=== PATIENT | female | born 1990 | race Caucasian/White ===

== ENCOUNTER 2018-11-10 00:23 | Emergency (ER) | payer OTHER ==
[2018-11-10 01:35] LABS: Amphetamine Screen,Urine Not Detected (NotDetected); Barbiturate Screen,Urine Not Detected (NotDetected); Benzodiazepines Screen,Urine Not Detected (NotDetected); Cocaine Screen,Urine Not Detected (NotDetected); Methadone Screen, Urine Not Detected (NotDetected); Opiate Screen,Urine Not Detected (NotDetected); Oxycodone Screen, Urine Not Detected (NotDetected); Phencyclidine Screen,Urine Not Detected (NotDetected); Tricyclic Antidepressant,Urine Not Detected (NotDetected); Urn Cannabinoid Scrn Detected (NotDetected)
--- NOTE | 2018-11-10 03:45 | ED ---
Psych HPI - General Chief Complaint: Psychiatric Symptoms Stated Complaint: Mental Health Time Seen by Provider: 11/10/18 01:37 Source: patient, family, police Mode of arrival: ambulatory - History of Present Illness Initial Comments: This patient is 27-year-old woman who is brought to have psychiatric evaluation. The patient's parents had filed a petition because they were concerned about her mental health. [place] and stated that she want to be alone. The patient's parents were concerned that she may have been suicidal. The patient states that she is not having thoughts of harming herself. She states that she needed to do some thinking and wanted to be alone for a while. She denies history of previous psychiatric illness or any previous suicidal ideation. MD Complaint: other -: hour(s) History of same: No - Related Data Home Medications Medication Instructions Recorded Confirmed Pnv,Calcium 72/Iron/Folic Acid 1 each PO DAILY 03/02/14 08/30/14 [ Vitamin with Low Iron] Previous Rx's Medication Instructions Recorded Acetaminophen-Codeine 300-30mg 2 each PO Q4HR PRN #30 tab 09/01/14 [Tylenol w/codeine #3] Ibuprofen [Motrin] 600 mg PO Q6HR PRN #30 tab 09/01/14 Allergies Allergy/AdvReac Type Severity Reaction Status Date / Time amoxicillin [Amoxicillin] Allergy Rash/Hives Verified 08/31/14 04:05 ciprofloxacin [From Cipro] Allergy Rash/Hives Verified 08/31/14 04:05 ciprofloxacin HCl Allergy Rash/Hives Verified 08/31/14 04:05 [From Cipro] Review of Systems ROS Statement: Those systems with pertinent positive or pertinent negative responses have been documented in the HPI. ROS Other: All systems not noted in ROS Statement are negative. Respiratory: Denies: cough, dyspnea Cardiovascular: Denies: chest pain, palpitations Gastrointestinal: Denies: abdominal pain, nausea, vomiting Genitourinary: Reports: abnormal menses (States she has not had a normal menstrual period since August, believes she may be ). Denies: dysuria, hematuria Musculoskeletal: Denies: back pain Skin: Denies: rash Neurological: Denies: headache Psychiatric: Denies: auditory hallucinations, visual hallucinations, homicidal thoughts, suicidal thoughts Past Medical History Past Medical History: Asthma Additional Past Medical History / Comment(s): OB history: This is her first . She has had care with me since 10 weeks. O neg, abs neg, Rub Imm, RPR NR, Hep B neg, HIV NR. normal anatomy US and declined quad. Normal 1hr GTT. History of Any Multi-Drug Resistant Organisms: None Reported Past Surgical History: Cholecystectomy Past Anesthesia/Blood Transfusion Reactions: No Reported Reaction Past Psychological History: Anxiety, Depression Smoking Status: Former smoker Past Alcohol Use History: None Reported Past Drug Use History: None Reported - Past Family History Mother Family Medical History: Hypertension General Exam Limitations: no limitations General appearance: alert, in no apparent distress Head exam: Present: atraumatic, normocephalic Eye exam: Present: normal appearance. Absent: scleral icterus, conjunctival injection Respiratory exam: Present: normal lung sounds bilaterally. Absent: respiratory distress, wheezes, rales, rhonchi, stridor Cardiovascular Exam: Present: regular rate, normal rhythm, normal heart sounds. Absent: systolic murmur, diastolic murmur, rubs, gallop GI/Abdominal exam: Present: soft. Absent: distended, tenderness, guarding, rebound, rigid, mass Neurological exam: Present: alert, oriented X3 Psychiatric exam: Absent: agitated, flat affect, manic, homicidal ideation, suicidal ideation Skin exam: Present: warm, dry, intact, normal color. Absent: rash Course Vital Signs 11/10/18 00:28 Temperature 97.9 F Pulse Rate 94 Respiratory 18 Rate Blood Pressure 113/78 O2 Sat by Pulse 99 Oximetry Medical Decision Making - Lab Data Result diagrams: 11/10/18 03:29 11/10/18 03:29 Lab Results 11/10/18 11/10/18 11/10/18 Range/Units 01:11 01:11 03:29 WBC (3.8-10.6) k/uL RBC (3.80-5.40) m/uL Hgb (11.4-16.0) gm/dL Hct (34.0-46.0) % MCV (80.0-100.0) fL MCH (25.0-35.0) pg MCHC (31.0-37.0) g/dL RDW (11.5-15.5) % Plt Count (150-450) k/uL Neutrophils % % Lymphocytes % % Monocytes % % Eosinophils % % Basophils % % Neutrophils # (1.3-7.7) k/uL Lymphocytes # (1.0-4.8) k/uL Monocytes # (0-1.0) k/uL Eosinophils # (0-0.7) k/uL Basophils # (0-0.2) k/uL Sodium 138 (137-145) mmol/L Potassium 3.5 (3.5-5.1) mmol/L Chloride 107 (98-107) mmol/L Carbon Dioxide 22 (22-30) mmol/L Anion Gap 9 mmol/L BUN 7 (7-17) mg/dL Creatinine 0.53 (0.52-1.04) mg/dL Est GFR (CKD-EPI)AfAm >90 (>60 ml/min/1.73 sqM) Est GFR (CKD-EPI)NonAf >90 (>60 ml/min/1.73 sqM) Glucose 93 (74-99) mg/dL Calcium 9.3 (8.4-10.2) mg/dL Urine HCG, Qual Detected (Not Detectd) Urine Opiates Screen Not Detected (NotDetected) Ur Oxycodone Screen Not Detected (NotDetected) Urine Methadone Screen Not Detected (NotDetected) Ur Propoxyphene Screen Not Detected (NotDetected) Acetaminophen <10.0 ug/mL Ur Barbiturates Screen Not Detected (NotDetected) U Tricyclic Antidepress Not Detected (NotDetected) Ur Phencyclidine Scrn Not Detected (NotDetected) Ur Amphetamines Screen Not Detected (NotDetected) U Methamphetamines Scrn Not Detected (NotDetected) U Benzodiazepines Scrn Not Detected (NotDetected) Urine Cocaine Screen Not Detected (NotDetected) U Marijuana (THC) Screen Detected H (NotDetected) 11/10/18 Range/Units 03:29 WBC 13.2 H (3.8-10.6) k/uL RBC 4.05 (3.80-5.40) m/uL Hgb 12.2 (11.4-16.0) gm/dL Hct 36.6 (34.0-46.0) % MCV 90.3 (80.0-100.0) fL MCH 30.1 (25.0-35.0) pg MCHC 33.4 (31.0-37.0) g/dL RDW 12.4 (11.5-15.5) % Plt Count 269 (150-450) k/uL Neutrophils % 77 % Lymphocytes % 17 % Monocytes % 4 % Eosinophils % 1 % Basophils % 0 % Neutrophils # 10.1 H (1.3-7.7) k/uL Lymphocytes # 2.2 (1.0-4.8) k/uL Monocytes # 0.5 (0-1.0) k/uL Eosinophils # 0.2 (0-0.7) k/uL Basophils # 0.0 (0-0.2) k/uL Sodium (137-145) mmol/L Potassium (3.5-5.1) mmol/L Chloride (98-107) mmol/L Carbon Dioxide (22-30) mmol/L Anion Gap mmol/L BUN (7-17) mg/dL Creatinine (0.52-1.04) mg/dL Est GFR (CKD-EPI)AfAm (>60 ml/min/1.73 sqM) Est GFR (CKD-EPI)NonAf (>60 ml/min/1.73 sqM) Glucose (74-99) mg/dL Calcium (8.4-10.2) mg/dL Urine HCG, Qual (Not Detectd) Urine Opiates Screen (NotDetected) Ur Oxycodone Screen (NotDetected) Urine Methadone Screen (NotDetected) Ur Propoxyphene Screen (NotDetected) Acetaminophen ug/mL Ur Barbiturates Screen (NotDetected) U Tricyclic Antidepress (NotDetected) Ur Phencyclidine Scrn (NotDetected) Ur Amphetamines Screen (NotDetected) U Methamphetamines Scrn (NotDetected) U Benzodiazepines Scrn (NotDetected) Urine Cocaine Screen (NotDetected) U Marijuana (THC) Screen (NotDetected) Disposition Clinical Impression: Mood disorder Disposition: HOME SELF-CARE Condition: Good Instructions (If sedation given, give patient instructions): Mood Disorders (ED) Is patient prescribed a controlled substance at d/c from ED?: No Referrals: None,Stated [Primary Care Provider] - 1-2 days
[2018-11-10 03:46] LABS: Basophils % (A) 0 %; Eosinophils # (A) 0.2 k/uL (0-0.7); Eosinophils % (A) 1 %; HCT 36.6 % (34.0-46.0); HGB 12.2 gm/dL (11.4-16.0); Lymphocytes # (A) 2.2 k/uL (1.0-4.8); Lymphocytes % (A) 17 %; MCH 30.1 pg (25.0-35.0); MCHC 33.4 g/dL (31.0-37.0); MCV 90.3 fL (80.0-100.0); Mean Platelet Volume 7.2; Monocytes # (A) 0.5 k/uL (0-1.0); Monocytes % (A) 4 %; Neutrophils # (A) 10.1 k/uL (1.3-7.7); Neutrophils % (A) 77 %; Platelet Count 269 k/uL (150-450); RBC 4.05 m/uL (3.80-5.40); RDW 12.4 % (11.5-15.5); WBC 13.2 k/uL (3.8-10.6)
[2018-11-10 03:55] LABS: Acetaminophen <10.0 ug/mL; African American GFR (CKD) >90 (>60 ml/min/1.73 sqM); Anion Gap 9 mmol/L; Blood Urea Nitrogen 7 mg/dL (7-17); Calcium 9.3 mg/dL (8.4-10.2); Carbon Dioxide 22 mmol/L (22-30); Chloride 107 mmol/L (98-107); Glucose 93 mg/dL (74-99); Potassium 3.5 mmol/L (3.5-5.1); Sodium 138 mmol/L (137-145)
[2018-11-10 06:56] VITALS: BP 116/78; PULSE 89; RESP 16; TEMP 98.2
== END 2018-11-10 06:12 | disposition home or self-care (01) ==
LOC: EC 00:23
DX: F39 Unspecified mood [affective] disorder (principal); Z90.49 Acquired absence of other specified parts of digestive tract; Z87.891 Personal history of nicotine dependence; Z88.0 Allergy status to penicillin; Z88.1 Allergy status to other antibiotic agents
CPT/HCPCS: 36415; 80048; 80306; 80329; 81025; 82075; 85025; 99284

== ENCOUNTER 2019-06-18 14:49 | Inpatient (IN) | payer OTHER ==
[2019-06-18] MEDS ORDERED: LIDOCAINE 0.5% (PF) 5 MG/ML (50 ML SDV) SQ PRN (15:10)
[2019-06-18] MEDS ORDERED: TERBUTALINE 1 MG/ML VIAL SQ PRN (15:10)
[2019-06-18] MEDS ORDERED: OXYTOCIN 10 UNIT/ML 1 ML VIAL IM PRN (15:10)
[2019-06-18] MEDS ORDERED: CARBOPROST TROMETHAMINE 250 MCG/ML 1 ML AMP IM PRN (15:10)
[2019-06-18] MEDS ORDERED: METHYLERGONOVINE 0.2 MG/ML 1 ML AMP IM PRN (15:10)
[2019-06-18] MEDS ORDERED: OXYTOCIN 30 UNITS/500 ML NS 30 UNIT in SALINE 1 500ML.BAG IV SCH (15:15)
[2019-06-18 16:00] LABS: Basophils # (A) 0.1 k/uL (0-0.2); Basophils % (A) 1 %; Eosinophils # (A) 0.1 k/uL (0-0.7); Eosinophils % (A) 1 %; HCT 35.8 % (34.0-46.0); Lymphocytes # (A) 1.5 k/uL (1.0-4.8); Lymphocytes % (A) 14 %; MCH 29.8 pg (25.0-35.0); MCHC 33.4 g/dL (31.0-37.0); MCV 89.2 fL (80.0-100.0); Mean Platelet Volume 8.7; Monocytes # (A) 0.8 k/uL (0-1.0); Monocytes % (A) 7 %; Neutrophils # (A) 8.2 k/uL (1.3-7.7); Neutrophils % (A) 76 %; Platelet Count 217 k/uL (150-450); RBC 4.02 m/uL (3.80-5.40); RDW 12.9 % (11.5-15.5); WBC 10.8 k/uL (3.8-10.6)
[2019-06-18] MEDS: LACTATED RINGERS 1,000 ML IV SCH ×2 (16:11→18:34)
--- NOTE | 2019-06-18 17:34 | P.HPOB ---
History of Present Illness H&P Date: 06/18/19 Chief Complaint: Spontaneous rupture of membranes This is a 28-year-old female 2 para 1 with an estimated date of confinement of 07/10/2019, estimated gestational age of 37-0/7 weeks who presents to labor and delivery with complaints of spontaneous rupture membranes at approximately 12:00 today. She denies feeling any regular contractions. She admits to good movement. Her care has been with Dr. Mena and has been uncomplicated per patient. labs: GC/chlamydia/gonorrhea-negative Hepatitis B surface antigen-negative RPR-nonreactive Rubella-immune Blood type-O- Antibody screen-negative The globe-12.3 Random glucose-55 Obstetrical ultrasound-normal anatomy One hour Glucola-84 RhoGAM is given at 31 weeks Group B streptococcus-negative Obstetrical history: . History of 1 vaginal delivery at term. 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 She is . Review of Systems Constitutional: Denies chills, Denies fever Eyes: denies blurred vision, denies pain Ears, nose, mouth and throat: Denies headache, Denies sore throat Cardiovascular: Denies chest pain, Denies shortness of breath Respiratory: Denies cough Gastrointestinal: Reports abdominal pain (Irregular contractions) Genitourinary: Reports pelvic pain, Reports Musculoskeletal: Reports low back pain Integumentary: Denies pruritus, Denies rash Neurological: Denies numbness, Denies weakness Psychiatric: Reports anxiety, Reports depression Past Medical History Past Medical History: Asthma, GERD/Reflux History of Any Multi-Drug Resistant Organisms: None Reported Past Surgical History: Cholecystectomy Past Anesthesia/Blood Transfusion Reactions: No Reported Reaction Past Psychological History: Anxiety, Depression Smoking Status: Never smoker Past Alcohol Use History: None Reported Past Drug Use History: Marijuana (States she has been using it every couple days throughout her . Her record states that she stopped using it when she found out she was . When I asked her if she had told Dr. Mena that she had started using it again, she states "she didn't ask".) - Past Family History Mother Family Medical History: Hypertension Medications and Allergies Home Medications Medication Instructions Recorded Confirmed Type No Known Home Medications 06/18/19 06/18/19 History Allergies Allergy/AdvReac Type Severity Reaction Status Date / Time amoxicillin [Amoxicillin] Allergy Rash/Hives Verified 06/18/19 15:09 ciprofloxacin [From Cipro] Allergy Rash/Hives Verified 06/18/19 15:09 ciprofloxacin HCl Allergy Rash/Hives Verified 06/18/19 15:09 [From Cipro] Exam Osteopathic Statement: *. No significant issues noted on an osteopathic structural exam other than those noted in the History and Physical/Consult. Vital Signs Temp Pulse Resp BP Pulse Ox 06/18/19 15:15 97.5 F L 83 16 127/81 98 Intake and Output 06/18/19 06/18/19 06/18/19 06:59 14:59 22:59 Other: Weight 70.307 kg HEENT: Within normal limits Heart: Regular rate and rhythm Lungs: Clear to auscultation bilaterally Abdomen: Cervix: On admission is 3-1/2 cm/80%/-2 station with positive amnisure and positive pooling of clear fluid. Currently cervix is 5 cm/80%/-1 station. heart tones: Category 1 Contractions: Irregular on admission. Currently every 3-5 minutes. Extremities: Negative Homans Results Result Diagrams: 06/18/19 15:51 Abnormal Lab Results - Last 24 Hours (Table) 06/18/19 Range/Units 15:51 WBC 10.8 H (3.8-10.6) k/uL Neutrophils # 8.2 H (1.3-7.7) k/uL Assessment and Plan (1) 37 weeks gestation of Current Visit: Yes Status: Acute Code(s): Z3A.37 - 37 WEEKS GESTATION OF SNOMED Code(s): 11720236 (2) Marijuana use Current Visit: Yes Status: Acute Code(s): F12.90 - CANNABIS USE, UNS PECIFIED, UNCOMPLICATED SNOMED Code(s): 283417035 Plan: Admission for spontaneous rupture of membranes. Oxytocin augmentation of labor. Epidural anesthesia if desired. Patient advised that delinquency prevention social worker will be consulted to make sure the baby has a safe environment to go home to.
--- NOTE | 2019-06-18 17:36 | P.MSEPDOC ---
Presenting Problems - Arrival Data Date of Arrival on Unit: 06/18/19 Time of Arrival on Unit: 14:49 Mode of Transport: Ambulatory - Complaint OB-Reason for Admission/Chief Complaint: Rule Out SROM Comment: clear fluid, 1200 Medical History - Information : 2 Para: 1 Term: 1 : 0 Abortions: Spontaneous or Elective: 0 Number of Living Children: 1 - Gestational Age Gestational Age by CONCHITA (wks/days): 36 Weeks and 6 Days - History Complications: Hx. Substance Abuse Comment: pt states uses marijuana 2x per week for anxiety and IBS Review of Systems - Review of Systems Constitutional: No problems Breast: No problems ENT: No problems Cardiovascular: No problems Respiratory: No problems Gastrointestinal: No problems Genitourinary: No problems Musculoskeletal: No problems Neurological: No problems Skin: No problems Vital Signs - Temperature Temperature: 97.5 F Temperature Source: Axillary - Pulse Right Brachial Pulse Rate: 83 Pulse Assessment Method: Automatic Cuff - Respirations Respiratory Rate: 16 Oxygen Delivery Method: Room Air O2 Sat by Pulse Oximetry: 98 - Blood Pressure Right Arm Blood Pressure: 127/81 Blood Pressure Mean: 96 Blood Pressure Source: Automatic Cuff Medical Screen Scoring (Pre) - Cervical Exam Dilation: 1-3 cm = 1 Effacement: More than 50% = 2 Membranes: Ruptured = 3 - Uterine Contractions Frequency: > 5 minutes apart = 1 Duration: > 40 seconds = 2 Intensity: N/A - Maternal Vital Signs Maternal Temperature: N/A Maternal Blood Pressure: N/A Signs of Preeclampsia: N/A Maternal Respirations: N/A - Maternal Trauma Maternal Trauma: N/A - Assessment - Baby A Baseline FHR: 130 Heart Rate - NICHD Category: Category I (Normal) = 0 NST: Reactive Position: N/A Station: N/A - Total Score - Baby A Total Score - Baby A: 9 - Total Score - Baby B Total Score - Baby B: 9 - Total Score - Baby C Total Score - Baby C: 9 - Level of Risk - Baby A Level of Risk - Baby A: Medium (6-9) - Level of Risk - Baby B Level of Risk - Baby B: Medium (6-9) - Level of Risk - Baby C Level of Risk - Baby C: Medium (6-9) Physician Notification (Pre) - Physician Notified Physician Notified Date: 06/18/19 Physician Notified Time: 15:19 New Order Received: Yes (admit for labor) - Notification Comment Comment: start Pitocin may have epidural prn Disposition - Disposition OB Disposition: Admit, Triage, LDRP Suite I agree with the RN Medical Screening Exam: Yes Risk & Benefit of care provided described in d/c instruction: Yes Diagnosis: ENCOUNTER FOR FULL-TERM UNCOMPLICATED DELIVERY
[2019-06-18] MEDS ORDERED: ROPIVACAINE 100 MG, fentaNYL (PF) 200 MCG in SODIUM CHLORIDE 0.9% 76 ML EPIDURAL ONE (18:40)
--- NOTE | 2019-06-18 19:58 | P.PROBDLV ---
Vaginal Delivery Note - . Vaginal Delivery Note: The patient progressed to complete dilation after oxytocin augmentation of labor and epidural anesthesia. Once reaching complete dilation, she began pushing. 's head came to a crown. With one further push, the 's head delivered across the perineum followed by the anterior shoulder. Nuchal cord times one was doubly clamped and cut and reduced around the infant's head. With one further push, the remainder the of the infant was easily delivered and jeanine rukhsana on mother's abdomen. Brisk cry was noted immediately. Nose and mouth were bulb suctioned. was then taken to warmer for evaluation. A viable female was noted with scores of 8 at 1 minute and 9 at 5 minutes and weight was 5 lbs. 15 oz. Placenta delivered shortly thereafter, intact, with a three-vessel cord. Uterus contracted well after oxytocin was given and uterine massage was carried out. Inspection of the perineum revealed no perineal lacerations. She did however have a rather large condyloma on the right upper labia. This was approximately 3 x 4 cm. The area was anesthetized with 1% lidocaine and then a scalpel was used to excise the condyloma. The base was then sutured with 3-0 Vicryl suture in a running subcuticular fashion. Good hemostasis was noted. All sponge counts were correct. Estimated blood loss is approximately less than 50 mL. Both mother and infant are in stable condition.
[2019-06-18] MEDS ORDERED: HYDROCORTISONE 2.5% RECTAL CREAM 30 GM TUBE RECTAL PRN (20:21)
[2019-06-18] MEDS ORDERED: ZOLPIDEM 5 MG TAB PO PRN (20:21)
[2019-06-18] MEDS ORDERED: SIMETHICONE 80 MG CHEWABLE PO PRN (20:21)
[2019-06-18] MEDS ORDERED: diphenhydrAMINE 50 MG CAP PO PRN (20:21)
[2019-06-18] MEDS ORDERED: diphenhydrAMINE 25 MG CAP PO PRN (20:21)
[2019-06-18] MEDS ORDERED: ACETAMINOPHEN TAB 325 MG TAB PO PRN (20:21)
[2019-06-18] MEDS ORDERED: BENZOCAINE/MENTHOL SPRAY 1 GM/SPRAY AEROSOL TOPICAL PRN (20:21)
[2019-06-18] MEDS ORDERED: diphenhydrAMINE 50 MG/ML 1 ML VIAL IVP PRN ×2 (20:21)
[2019-06-18] MEDS ORDERED: LANOLIN CREAM 5 GM TUBE TOPICAL PRN (20:21)
[2019-06-18] MEDS ORDERED: OXYTOCIN 20 UNITS/1000 ML NS 1,000 ML IV SCH (20:21)
[2019-06-18] MEDS ORDERED: WITCH HAZEL 1 EACH MED..PAD TOPICAL PRN (20:21)
[2019-06-18] MEDS: SENNOSIDES-DOCUSATE SODIUM 1 EACH TAB PO SCH (23:39)
[2019-06-18] MEDS: IBUPROFEN 600 MG TAB PO PRN (23:39)
[2019-06-18] MEDS ORDERED: Rhogam IMMUNE GLOBULIN 1,500 UNIT/1 ML IM ONE (23:40)
[2019-06-19 07:16] LABS: Basophils % (A) 0 %; Eosinophils # (A) 0.1 k/uL (0-0.7); Eosinophils % (A) 1 %; HCT 31.9 % (34.0-46.0); HGB 10.6 gm/dL (11.4-16.0); Lymphocytes # (A) 1.8 k/uL (1.0-4.8); Lymphocytes % (A) 16 %; MCH 29.7 pg (25.0-35.0); MCHC 33.3 g/dL (31.0-37.0); MCV 89.2 fL (80.0-100.0); Mean Platelet Volume 9.1; Monocytes # (A) 0.8 k/uL (0-1.0); Monocytes % (A) 7 %; Neutrophils % (A) 73 %; Platelet Count 184 k/uL (150-450); RBC 3.57 m/uL (3.80-5.40); RDW 12.8 % (11.5-15.5); WBC 10.9 k/uL (3.8-10.6)
[2019-06-19] MEDS: IBUPROFEN 600 MG TAB PO PRN ×2 (08:14→20:38)
[2019-06-19] MEDS: SENNOSIDES-DOCUSATE SODIUM 1 EACH TAB PO SCH ×2 (08:16→21:33)
--- NOTE | 2019-06-19 10:07 | P.DS ---
Providers Date of admission: 06/18/19 15:13 Expected date of discharge: 06/19/19 Attending physician: Maricel Miller Primary care physician: Stated None - Discharge Diagnosis(es) (1) 37 weeks gestation of Current Visit: Yes Status: Acute (2) Marijuana use Current Visit: Yes Status: Acute Hospital Course: This is a 28-year-old female 2 para 1 at 36-6/7 weeks who presented in active labor with spontaneous rupture of membranes. She underwent oxytocin augmentation of labor and delivered vaginally a viable female infant with scores of 8 at 1 minute and 9 at 5 minutes and infant weight of 5 lbs. 15 oz. on 06/18/2019. She did have a condyloma on her right labia that was removed after delivery and sent to pathology. Her course has been uncomplicated. Lochia is decreasing. Pain is well-controlled. She is breast-feeding. Vital signs are stable. Abdomen is soft with fundus firm and nontender. Extremities show negative Homans. Impression is status post vaginal delivery day #1. Plan is to discharge home today. She will be given a prescription for ibuprofen and a breast pump. Routine instructions are given. She is advised to follow up with Dr. Mena in the office in 6 weeks. She is advised to call the office if she has any further questions or concerns prior to her appointment time. Procedures: Spontaneous vaginal delivery of a viable female infant on 06/18/2019 Patient Condition at Discharge: Stable Plan - Discharge Summary New Discharge Prescriptions: New Ibuprofen [Motrin] 600 mg PO Q6HR PRN #60 tab PRN Reason: Mild Pain Or Fever >= 100.5 Discharge Medication List Ibuprofen [Motrin] 600 mg PO Q6HR PRN #60 tab 06/19/19 [Rx] Follow up Appointment(s)/Referral(s): Ruby Mena DO [Doctor of Osteopathic Medicine] - 6 Weeks Activity/Diet/Wound Care/Special Instructions: Instructions 1. Do not begin any exercise program for 3 weeks. 2. Do not resume sexual relations for 3 weeks or longer if uncomfortable. 3. You may take tub baths or showers at any time. 4. You may use tampons if desired after 3 weeks. 5. Keep the area of episiotomy (stitches) clean and dry. 6. If you are not nursing, wear a good fitting, supportive bra during the day and limit fluid intake for at least 1 week to prevent breast engorgement. 7. Call the office, [phone], within the next week to make appointment for your 6 week checkup if it has not already been made. 8. Report any of the following occurrences to the doctor promptly: a. Heavy, excessive bleeding b. Chills, fever c. Burning or frequency of urination d. Pain or redness and breasts if nursing e. Increasing pain or swelling in episiotomy (stitches). In addition to the above instructions, the following additional should be followed: 1. No heavy lifting or straining (exercising) until after 6 week checkup. 2. Keep abdominal incision clean and dry: You may wear a dressing if more comfortable. 3. Make office appointment for 10 days after going home or as instructed by her doctor. Discharge Disposition: HOME SELF-CARE
[2019-06-20 05:09] VITALS: RESP 18
[2019-06-20] MEDS: IBUPROFEN 600 MG TAB PO PRN ×2 (07:53→17:01)
[2019-06-20] MEDS: SENNOSIDES-DOCUSATE SODIUM 1 EACH TAB PO SCH (14:27)
[2019-06-20 16:06] VITALS: BP 117/60; PULSE 90; TEMP 98.5
== END 2019-06-20 17:10 | disposition home or self-care (01) | DRG 768 ==
LOC: FBPOP 14:49 → 4FBP 15:13
PROVIDERS: ADMIT Obstetrics & Gynecology; ATTEND Obstetrics & Gynecology
PROC: 10E0XZZ Delivery of Products of Conception, External Approach (ICD-10-PCS; principal; 2019-06-18)
PROC: 3E0234Z Introduction of Serum, Toxoid and Vaccine into Muscle, Percutaneous Approach (ICD-10-PCS; principal; 2019-06-18)
PROC: 3E0R3BZ Introduction of Anesthetic Agent into Spinal Canal, Percutaneous Approach (ICD-10-PCS; principal; 2019-06-18)
PROC: 0UBMXZZ Excision of Vulva, External Approach (ICD-10-PCS; principal; 2019-06-18)
PROC: 00HU33Z Insertion of Infusion Device into Spinal Canal, Percutaneous Approach (ICD-10-PCS; principal; 2019-06-18)
DX: O42.013 Preterm premature rupture of membranes, onset of labor within 24 hours of rupture, third trimester (principal); Z37.0 Single live birth; O98.32 Other infections with a predominantly sexual mode of transmission complicating childbirth; O99.324 Drug use complicating childbirth; O69.81X0 Labor and delivery complicated by cord around neck, without compression, not applicable or unspecified; O26.893 Other specified pregnancy related conditions, third trimester; Z67.41 Type O blood, Rh negative; A63.0 Anogenital (venereal) warts; O99.52 Diseases of the respiratory system complicating childbirth; O99.62 Diseases of the digestive system complicating childbirth; F12.90 Cannabis use, unspecified, uncomplicated; K21.9 Gastro-esophageal reflux disease without esophagitis; J45.909 Unspecified asthma, uncomplicated; Z3A.36 36 weeks gestation of pregnancy; Z90.49 Acquired absence of other specified parts of digestive tract; Z98.890 Other specified postprocedural states; Z86.59 Personal history of other mental and behavioral disorders; Z88.1 Allergy status to other antibiotic agents; Z88.0 Allergy status to penicillin; Z82.49 Family history of ischemic heart disease and other diseases of the circulatory system
CPT/HCPCS: 59025; 84112; 85025; 85461; 86850; 86870; 86880; 86900; 86901; 88305; 88307; 99213

== ENCOUNTER 2019-07-28 10:54 | Emergency (ER) | payer OTHER ==
[2019-07-28 10:58] VITALS: RESP 18; TEMP 97.9
[2019-07-28] MEDS ORDERED: IPRATROPIUM-ALBUTEROL 3 ML NEB INHALATION STA (11:15)
--- NOTE | 2019-07-28 11:18 | ED ---
[facility] HPI - General Chief Complaint: Upper Respiratory Infection Stated Complaint: cough Time Seen by Provider: 07/28/19 10:59 Source: patient, RN notes reviewed Mode of arrival: ambulatory Limitations: no limitations - History of Present Illness Initial Comments: 28-year-old female presents emergency Department chief complaint nasal congestion and cough. She has had no fever. Patient states that she feels like she has bronchitis. She's had in the past she is a daily smoker and suffers was spring seasonal ALLERGIES. She has been taking some antihistamines were greatly helped. Patient states he went to [facility] and they test her for influenza states that they sent her here for further evaluation she claims that they did a Covid testing. Patient again states she has no chest pain no fever. Patient denies any myalgias. - Related Data Home Medications Medication Instructions Recorded Confirmed Albuterol Sulfate [Ventolin HFA] 1 - 2 puff INHALATION RT-Q6H PRN 07/28/19 07/28/19 Previous Rx's Medication Instructions Recorded Albuterol Sulfate [Proair Hfa] 1 - 2 puff INHALATION Q4HR PRN #1 07/28/19 inhaler RX: Azithromycin [Zithromax Z-pack] 0 mg PO DIRECTED #1 pack 07/28/19 RX: predniSONE 50 mg PO DAILY #3 tab 07/28/19 Allergies Allergy/AdvReac Type Severity Reaction Status Date / Time amoxicillin [Amoxicillin] Allergy Rash/Hives Verified 07/28/19 11:59 ciprofloxacin [From Cipro] Allergy Rash/Hives Verified 07/28/19 11:59 ciprofloxacin HCl Allergy Rash/Hives Verified 07/28/19 11:59 [From Cipro] Review of Systems ROS Statement: Those systems with pertinent positive or pertinent negative responses have been documented in the HPI. ROS Other: All systems not noted in ROS Statement are negative. Past Medical History Past Medical History: Asthma, GERD/Reflux Additional Past Medical History / Comment(s): OB history: This is her first . She has had care with me since 10 weeks. O neg, abs neg, Rub Imm, RPR NR, Hep B neg, HIV NR. normal anatomy US and declined quad. Normal 1hr GTT. History of Any Multi-Drug Resistant Organisms: None Reported Past Surgical History: Cholecystectomy Past Anesthesia/Blood Transfusion Reactions: No Reported Reaction Past Psychological History: Anxiety, Depression Smoking Status: Current every day smoker Past Alcohol Use History: None Reported Past Drug Use History: Marijuana - Past Family History Mother Family Medical History: Hypertension General Exam Limitations: no limitations General appearance: alert, in no apparent distress Head exam: Present: atraumatic, normocephalic, normal inspection Eye exam: Present: normal appearance, PERRL, EOMI. Absent: scleral icterus, conjunctival injection, periorbital swelling ENT exam: Present: normal exam, normal oropharynx, mucous membranes moist, TM's normal bilaterally Neck exam: Present: normal inspection, full ROM. Absent: tenderness, meningismus, lymphadenopathy Respiratory exam: Present: wheezes. Absent: normal lung sounds bilaterally, respiratory distress, rales, rhonchi, stridor Cardiovascular Exam: Present: regular rate, normal rhythm, normal heart sounds. Absent: systolic murmur, diastolic murmur, rubs, gallop, clicks Skin exam: Present: warm, dry, intact, normal color. Absent: rash Course Vital Signs 07/28/19 07/28/19 10:55 11:43 Temperature 97.9 F Pulse Rate 89 88 Respiratory 18 Rate Blood Pressure 122/86 O2 Sat by Pulse 97 Oximetry Medical Decision Making - Medical Decision Making Patient reevaluated after DuoNeb treatment. Symptoms have completely resolved. Chest x-ray does not show acute abnormality. Patient's is a daily smoker,I counseled the patient for smoking cessation for greater than 3 minutes. Patient will be treated for asthmatic bronchitis at this time return parameters were discussed. Disposition Clinical Impression: Asthmatic bronchitis Disposition: HOME SELF-CARE Condition: Stable Instructions (If sedation given, give patient instructions): Bronchospasm (ED) Additional Instructions: Please return to the Emergency Department if symptoms worsen or any other concerns. Prescriptions: RX: predniSONE 50 mg PO DAILY #3 tab Albuterol Sulfate [Proair Hfa] 1 - 2 puff INHALATION Q4HR PRN #1 inhaler PRN Reason: difficulty in breathing RX: Azithromycin [Zithromax Z-pack] 0 mg PO DIRECTED #1 pack Is patient prescribed a controlled substance at d/c from ED?: No Referrals: None,Stated [Primary Care Provider] - 1-2 days José Luis Diana DO [Doctor of Osteopathic Medicine] - 1-2 days Time of Disposition: 12:11
--- NOTE | 2019-07-28 11:33 | XR ---
EXAMINATION TYPE: XR chest 1V DATE OF EXAM: 07/28/2019 COMPARISON: 06/18/2013 HISTORY: Persistent cough TECHNIQUE: Single frontal view of the chest is obtained. FINDINGS: There is no focal air space opacity, pleural effusion, or pneumothorax seen. The cardiac silhouette size is within normal limits. The osseous structures are intact. IMPRESSION: No acute process.
[2019-07-28 12:29] VITALS: BP 122/78; PULSE 85
== END 2019-07-28 12:27 | disposition home or self-care (01) ==
LOC: EC 10:54
DX: J45.909 Unspecified asthma, uncomplicated (principal); Z71.6 Tobacco abuse counseling; F17.200 Nicotine dependence, unspecified, uncomplicated; Z88.0 Allergy status to penicillin; Z88.1 Allergy status to other antibiotic agents; Z79.899 Other long term (current) drug therapy; Z91.048 Other nonmedicinal substance allergy status
CPT/HCPCS: 71045; 94640; 99283; 99406

== ENCOUNTER → 2019-12-22 | Outpatient (CLI) | payer OTHER ==
--- NOTE | 2019-12-23 06:59 | US ---
EXAMINATION TYPE: Transabdominal DATE OF EXAM: 12/22/2019 4:14 PM COMPARISON: NONE CLINICAL HISTORY: Z36 Confirm Dates. unknown dates EXAM PERFORMED: Transabdominal (TA) EXAM MEASUREMENTS: GESTATIONAL AGE / DATING Physician Established: Not yet established Dates by LMP: LMP unknown Dates by First Scan: No previous this is first scan Dates by Current Scan for: (11 weeks/5 days) EDC: 07/07/20 MATERNAL ANATOMY Uterus: 14.2 x 6.8 x 9.3cm Right Ovary: 2.4 x 1.6 x 3.0cm Left Ovary: 2.6 x 1.4 x 1.4cm Post CDS / Adnexa: appears wnl Presence of free fluid: no Presence of corpus luteal cyst: yes, complex area right ovary = 1.6 x 1.6 x 1.6cm GESTATION / SURVEY CRL: 4.9cm (11 weeks/5 days) Yolk Sac (normal less than 6mm): 0.4cm Heart Rate: 165 bpm Rhythm: Normal IUP: Viable IUP Nuchal Translucency 10-14wks (normal less than 3mm): 0.3cm Date of LMP: unknown Beta HcG (if available): Not available at this time Single viable IUP 11wks/5days with CONCHITA of 07/07/20. corpus luteum right ovary IMPRESSION: Single viable intrauterine of 11 weeks 5 days with a heart rate of 165 bpm.
== END | disposition home or self-care (01) ==
LOC: RADUSWWP 15:53
PROVIDERS: ATTEND Obstetrics & Gynecology
DX: Z36.9 Encounter for antenatal screening, unspecified (principal)
CPT/HCPCS: 76801

== ENCOUNTER 2020-06-30 06:06 | Inpatient (IN) | payer OTHER ==
[2020-06-30] MEDS ORDERED: OXYTOCIN 10 UNIT/ML 1 ML VIAL IM PRN (06:31)
[2020-06-30] MEDS ORDERED: LIDOCAINE 0.5% (PF) 5 MG/ML (50 ML SDV) SQ PRN (06:31)
[2020-06-30] MEDS ORDERED: TERBUTALINE 1 MG/ML VIAL SQ PRN (06:31)
[2020-06-30] MEDS ORDERED: METHYLERGONOVINE 0.2 MG/ML 1 ML AMP IM PRN (06:31)
[2020-06-30] MEDS ORDERED: CARBOPROST TROMETHAMINE 250 MCG/ML 1 ML AMP IM PRN (06:31)
[2020-06-30] MEDS ORDERED: LACTATED RINGERS 1,000 ML IV SCH (06:45)
--- NOTE | 2020-06-30 07:27 | P.HPOB ---
History of Present Illness H&P Date: 06/30/20 Chief Complaint: Contractions This is a 29-year-old female 3 para 2 at 39-0/7 weeks with an estimated date of confinement of 07/07/2020, who presented to labor and delivery with complains of contractions since approximately 3 AM. She is unsure if she had any rupture of membranes yet. Amnisure was positive in triage. course has been uncomplicated per patient. labs: GC/chlamydia/minus-negative Hepatitis B surface antigen-negative RPR-nonreactive Rubella-immune Blood type-O- Antibody screen-negative RPR-nonreactive Hemoglobin-12.7 Random glucose-70 Obstetrical ultrasound-normal anatomy One hour Glucola-91 RhoGAM was given at approximately 28 weeks. Group B streptococcus is negative. Obstetrical history: . History of 2 vaginal deliveries at term with no complications. Review of Systems Constitutional: Denies chills, Denies fever Eyes: denies blurred vision, denies pain Ears, nose, mouth and throat: Denies headache, Denies sore throat Cardiovascular: Denies chest pain, Denies shortness of breath Respiratory: Denies cough Gastrointestinal: Reports abdominal pain (Contractions) Genitourinary: Reports pelvic pain, Reports Musculoskeletal: Reports low back pain, Denies myalgias Integumentary: Denies pruritus, Denies rash Neurological: Denies numbness, Denies weakness Past Medical History Past Medical History: Asthma, GERD/Reflux History of Any Multi-Drug Resistant Organisms: None Reported Past Surgical History: Cholecystectomy Past Anesthesia/Blood Transfusion Reactions: No Reported Reaction Past Psychological History: Anxiety, Depression Past Alcohol Use History: None Reported Past Drug Use History: Marijuana - Past Family History Mother Family Medical History: Hypertension Medications and Allergies Home Medications Medication Instructions Recorded Confirmed Type Albuterol Sulfate [Ventolin HFA] 1 - 2 puff INHALATION RT-Q6H PRN 07/28/19 History Allergies Allergy/AdvReac Type Severity Reaction Status Date / Time amoxicillin [Amoxicillin] Allergy Rash/Hives Verified 07/28/19 11:59 ciprofloxacin [From Cipro] Allergy Rash/Hives Verified 07/28/19 11:59 ciprofloxacin HCl Allergy Rash/Hives Verified 07/28/19 11:59 [From Cipro] Exam Osteopathic Statement: *. No significant issues noted on an osteopathic structural exam other than those noted in the History and Physical/Consult. Intake and Output 06/29/20 06/30/20 06/30/20 22:59 06:59 14:59 Other: Weight 65.771 kg Gen.: Well-developed well-nourished female in distress due to labor HEENT: Within normal limits Heart: Regular rate and rhythm Lungs: Clear to auscultation bilaterally Abdomen: Cervix: Rim/+1 station with thin bag palpated. Artificial rupture membranes is carried out with clear fluid noted. heart tones: Category 1 Contractions: Every 2-3 minutes Extremities: Negative Homans Assessment and Plan (1) 39 weeks gestation of Current Visit: Yes Status: Acute Code(s): Z3A.39 - 39 WEEKS GESTATION OF SNOMED Code(s): 87963429 Plan: Admit for active labor. Expectant management.
--- NOTE | 2020-06-30 07:32 | P.PROBDLV ---
Vaginal Delivery Note - . Vaginal Delivery Note: The patient progressed to complete dilation fairly rapidly after artificial rupture membranes is carried out. She began pushing. 's head came to a crown. With one further push, the 's head delivered across the perineum followed by the remainder the infant. Cord was clamped and cut and was evaluated by nursing staff. A viable female was noted with scores of 9 at 1 minute and 9 at 5 minutes and infant weight of 5 lbs. 13 oz. Short cord was noted. Placenta delivered shortly thereafter, intact, with a three- vessel cord. Uterus contracted fairly well after oxytocin was given and uterine massage was carried out. Bladder was also drained. A gloved hand was placed within the uterine cavity and no further tissue was obtained. Estimated blood loss is approximately 200 mL's. Both mother and are in stable condition. No lacerations are noted.
[2020-06-30] MEDS ORDERED: ZOLPIDEM 5 MG TAB PO PRN (07:44)
[2020-06-30] MEDS ORDERED: BENZOCAINE/MENTHOL SPRAY 1 GM/SPRAY AEROSOL TOPICAL PRN (07:44)
[2020-06-30] MEDS ORDERED: diphenhydrAMINE 50 MG CAP PO PRN (07:44)
[2020-06-30] MEDS ORDERED: HYDROCORTISONE 2.5% RECTAL CREAM 30 GM TUBE RECTAL PRN (07:44)
[2020-06-30] MEDS ORDERED: diphenhydrAMINE 50 MG/ML 1 ML VIAL IVP PRN ×2 (07:44)
[2020-06-30] MEDS ORDERED: LANOLIN CREAM 5 GM TUBE TOPICAL PRN (07:44)
[2020-06-30] MEDS ORDERED: ACETAMINOPHEN TAB 325 MG TAB PO PRN (07:44)
[2020-06-30] MEDS ORDERED: SIMETHICONE 80 MG CHEWABLE PO PRN (07:44)
[2020-06-30] MEDS ORDERED: OXYTOCIN 30 UNITS/500 ML NS 30 UNIT in SALINE 1 500ML.BAG IV SCH (07:44)
[2020-06-30] MEDS ORDERED: diphenhydrAMINE 25 MG CAP PO PRN (07:44)
[2020-06-30] MEDS: IBUPROFEN 600 MG TAB PO PRN ×2 (07:50→15:13)
[2020-06-30] MEDS: SENNOSIDES-DOCUSATE SODIUM 1 EACH TAB PO SCH ×2 (08:21→19:45)
[2020-06-30] MEDS ORDERED: Rhogam IMMUNE GLOBULIN 1,500 UNIT/1 ML IM ONE (17:47)
[2020-07-01 00:10] VITALS: RESP 16
[2020-07-01] MEDS: IBUPROFEN 600 MG TAB PO PRN ×2 (04:44→09:51)
[2020-07-01 07:37] LABS: Basophils % (A) 0 %; Eosinophils # (A) 0.1 k/uL (0-0.7); Eosinophils % (A) 1 %; HCT 34.4 % (34.0-46.0); HGB 11.6 gm/dL (11.4-16.0); Lymphocytes # (A) 1.5 k/uL (1.0-4.8); Lymphocytes % (A) 16 %; MCH 30.4 pg (25.0-35.0); MCHC 33.8 g/dL (31.0-37.0); MCV 89.9 fL (80.0-100.0); Mean Platelet Volume 8.4; Monocytes # (A) 0.6 k/uL (0-1.0); Monocytes % (A) 6 %; Neutrophils % (A) 75 %; Platelet Count 178 k/uL (150-450); RBC 3.83 m/uL (3.80-5.40); RDW 13.3 % (11.5-15.5); WBC 9.3 k/uL (3.8-10.6)
[2020-07-01 08:31] VITALS: BP 126/78; PULSE 80; TEMP 98.8
[2020-07-01] MEDS: SENNOSIDES-DOCUSATE SODIUM 1 EACH TAB PO SCH (08:32)
--- NOTE | 2020-07-01 09:37 | P.DS ---
Providers Date of admission: 06/30/20 06:23 Expected date of discharge: 07/01/20 Attending physician: Ruby Mena Primary care physician: Stated None - Discharge Diagnosis(es) (1) Normal vaginal delivery Current Visit: No Status: Acute Hospital Course: Patient presented in active labor. She underwent normal vaginal delivery. course was uncomplicated. She'll be discharged home day #1 in stable condition to follow-up with me in 6 weeks. Plan - Discharge Summary New Discharge Prescriptions: New Ibuprofen [Motrin] 600 mg PO Q6HR PRN #30 tab PRN Reason: Mild Pain Or Fever >= 100.5 No Action Albuterol Sulfate [Ventolin HFA] 1 - 2 puff INHALATION RT-Q6H PRN PRN Reason: Shortness Of Breath Discharge Medication List Albuterol Sulfate [Ventolin HFA] 1 - 2 puff INHALATION RT-Q6H PRN 07/28/19 [History] Ibuprofen [Motrin] 600 mg PO Q6HR PRN #30 tab 07/01/20 [Rx] Follow up Appointment(s)/Referral(s): Ruby Mena DO [Doctor of Osteopathic Medicine] - 6 Weeks Discharge Disposition: HOME SELF-CARE
--- NOTE | 2020-07-03 06:48 | P.MSEPDOC ---
Presenting Problems - Arrival Data Date of Arrival on Unit: 06/30/20 Time of Arrival on Unit: 06:10 Mode of Transport: Wheelchair - Complaint OB-Reason for Admission/Chief Complaint: Possible Onset of Labor Comment: pt. c/o contractions starting 0300 about every 5min per patient and at 0400 started seeing bloody show, pt. denies any leaking of fluid, upon observation bloody show and small leaking of fluid on pad. amnisure collected and positive, cervix complete with small bugling bag Medical History - Information : 3 Para: 2 Term: 2 : 0 Abortions: Spontaneous or Elective: 0 Number of Living Children: 2 - Gestational Age Gestational Age by CONCHITA (wks/days): 39 Weeks and 0 Days - History Complications: Smoker Comment: THC use Review of Systems - Review of Systems Constitutional: No problems Breast: No problems ENT: No problems Cardiovascular: No problems Respiratory: No problems Gastrointestinal: No problems Genitourinary: No problems Musculoskeletal: No problems Neurological: No problems Skin: No problems Vital Signs - Temperature Temperature: 98.8 F Temperature Source: Oral - Pulse Pulse Oximetery Pulse Rate: 80 Pulse Assessment Method: Automatic Cuff - Respirations Respiratory Rate: 16 Oxygen Delivery Method: Room Air - Blood Pressure Right Arm Blood Pressure: 126/78 Blood Pressure Mean: 94 Blood Pressure Source: Automatic Cuff Medical Screen Scoring (Pre) - Cervical Exam Dilation: 8-10 cm = 3 Effacement: More than 50% = 2 Membranes: Ruptured = 3 - Uterine Contractions Frequency: > 5 minutes apart = 1 Duration: > 40 seconds = 2 Intensity: N/A - Maternal Vital Signs Maternal Temperature: N/A Maternal Blood Pressure: N/A Signs of Preeclampsia: N/A Maternal Respirations: N/A - Assessment - Baby A Baseline FHR: 140 Heart Rate - NICHD Category: Category I (Normal) = 0 NST: Reactive Position: N/A Station: N/A - Total Score - Baby A Total Score - Baby A: 11 - Total Score - Baby B Total Score - Baby B: 11 - Total Score - Baby C Total Score - Baby C: 11 - Level of Risk - Baby A Level of Risk - Baby A: High (10+) - Level of Risk - Baby B Level of Risk - Baby B: High (10+) - Level of Risk - Baby C Level of Risk - Baby C: High (10+) Physician Notification (Pre) - Physician Notified Physician Notified Date: 06/30/20 Physician Notified Time: 06:10 Disposition - Disposition OB Disposition: Admit Discharge Date: 07/01/20 Discharge Time: 10:23 I agree with the RN Medical Screening Exam: Yes Case reviewed; plan agreed upon as documented in EMR&OBIX.: Yes Diagnosis: ENCOUNTER FOR FULL-TERM UNCOMPLICATED DELIVERY
== END 2020-07-01 10:28 | disposition home or self-care (01) | DRG 807 ==
LOC: FBPOP 06:06 → 4FBP 06:23
PROVIDERS: ADMIT Obstetrics & Gynecology; ATTEND Obstetrics & Gynecology
PROC: 10E0XZZ Delivery of Products of Conception, External Approach (ICD-10-PCS; principal; 2020-06-30)
PROC: 10907ZC Drainage of Amniotic Fluid, Therapeutic from Products of Conception, Via Natural or Artificial Opening (ICD-10-PCS; 2020-06-30)
DX: O69.3XX0 Labor and delivery complicated by short cord, not applicable or unspecified (principal); Z37.0 Single live birth; O99.52 Diseases of the respiratory system complicating childbirth; O99.344 Other mental disorders complicating childbirth; F32.9 Major depressive disorder, single episode, unspecified; F41.9 Anxiety disorder, unspecified; Z90.49 Acquired absence of other specified parts of digestive tract; J45.909 Unspecified asthma, uncomplicated; K21.9 Gastro-esophageal reflux disease without esophagitis; Z3A.39 39 weeks gestation of pregnancy; Z82.49 Family history of ischemic heart disease and other diseases of the circulatory system; Z88.1 Allergy status to other antibiotic agents; Z88.0 Allergy status to penicillin
CPT/HCPCS: 85025; 85461; 86850; 86870; 86880; 86900; 86901